=== PATIENT | female | born 1985 | race Caucasian/White ===

== ENCOUNTER 2021-06-30 11:07 | Outpatient (CLI) | payer OTHER | END 2021-06-30 11:39 | disposition home or self-care (01) | LOC: NST 11:07 | PROVIDERS: ATTEND Obstetrics & Gynecology | DX: Z34.83 Encounter for supervision of other normal pregnancy, third trimester (principal) ==

== ENCOUNTER 2021-08-04 16:19 | Inpatient (IN) | payer OTHER ==
[~2021-08-04] VITALS: Ht 162.6 cm; Wt 84.4 kg
[2021-08-08] MEDS ORDERED: ZOFRAN8 MG PO (08:45)
[2021-08-08] MEDS ORDERED: NIFEDIPINE ER60 M1 (10:45)
== END 2021-08-10 10:08 | disposition home or self-care (01) | DRG 807 ==
LOC: LDR 08-08 07:35 → SURG-SUITE 08-08 07:35 → OB/GYN 08-08 09:20 → SURG-SUITE 08-08 09:34 → OB/GYN 08-08 10:24 → SURG-SUITE 08-08 11:40 → OB/GYN 08-18 16:08
PROVIDERS: ADMIT Obstetrics & Gynecology; ATTEND Obstetrics & Gynecology
PROC: 10E0XZZ Delivery of Products of Conception, External Approach (ICD-10-PCS; principal; 2021-08-08)
PROC: 4A1HXCZ Monitoring of Products of Conception, Cardiac Rate, External Approach (ICD-10-PCS; 2021-08-08)
PROC: 0UQMXZZ Repair Vulva, External Approach (ICD-10-PCS; 2021-08-08)
DX: O71.4 Obstetric high vaginal laceration alone (principal); Z37.0 Single live birth; Z3A.38 38 weeks gestation of pregnancy; Z20.822 Contact with and (suspected) exposure to COVID-19